=== PATIENT | male | born 1980 | race Caucasian/White ===

== ENCOUNTER 2023-08-07 15:30 | Emergency (ER) | payer SELFPAY ==
[2023-08-07] VITALS (24 sets, daily range): BP systolic 156–189; BP diastolic 92–110; PULSE 98–133; RESP 12–23; TEMP 36.6; O2SAT 93–99
--- NOTE | ~2023-08-07 | CT_ITS ---
EXAMINATION: CTA chest PE protocol DATE: 08/07/2023 16:44 INDICATION: 4 days of left-sided chest pain TECHNIQUE: Computed tomography (CT) pulmonary angiogram of the chest was performed with 100 mL Omnipa que-350 intravenous contrast. Additional 3D reconstructions utilizing coronal maximum intensity proje ction (MIP) were performed. Automated exposure control and iterative reconstruction technique were em ployed. The dose-length product was 528.11 mGy-cm. COMPARISON: None FINDINGS: Good contrast opacification of the pulmonary arteries. There is mild streak artifact from dense contr ast in the superior vena cava and right atrium. Mild scattered respiratory motion artifact most promi nent at the bilateral lung bases. Together this mildly decreases sensitivity in some of the smaller b asilar subsegmental pulmonary arteries. No definitive pulmonary embolism identified. There is an jessica omic variant partial anomalous pulmonary venous return of the pulmonary veins from the left upper lob e and lingula into the left brachiocephalic vein. Lungs are clear with no pneumonia, pulmonary edema, pulmonary infarct or pleural effusion. Heart size is normal. No pericardial effusion. Thoracic aorta is normal in caliber with no dissection. No pathologically enlarged thoracic lymphadenopathy. Mild b ilateral gynecomastia. Diffuse hepatic steatosis. Mild thoracic spondylosis. IMPRESSION: 1. No pulmonary embolism or other acute cardiopulmonary disease. 2. 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 The line 3. Diffuse hepatic steatosis. Reviewed, dictated and finalized at location A. EKEEPING/LAUNDRY IMPRESSION: 1. No pulmonary embolism or other acute cardiopulmonary disease. 2. 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 The line 3. Diffuse hepatic steatosis.
--- NOTE | 2023-08-07 15:49 | ECG_ITS ---
Measurements Intervals [place] Rate: 123 P: 73 AR: 153 QRS: 54 QRSD: 90 T: 54 QT: 308 QTc: 441 Interpretive Statements SINUS TACHYCARDIA OTHERWISE NORMAL ECG NO PREVIOUS ECG AVAILABLE FOR COMPARISON Electronically Signed On 08-09-2023 10:43:58 ART MODEL by Gavino Mccracken M.D.
[2023-08-07 16:02] LABS: Glucose Point of Care 120 mg/dl (65-105)
[2023-08-07 16:11] LABS: Basophils Absolute Auto 0.04 K/mm3 (0.00-0.10); Basophils Percent Auto 0.3 % (0.0-1.0); Eosinophils Absolute Auto 0.01 K/mm3 (0.02-0.50); Eosinophils Percent Auto 0.1 % (1.0-6.0); Hematocrit 44.9 % (40.0-54.0); Hemoglobin 15.5 g/dL (14.0-18.0); Immature Granulocyte Absolute 0.05 K/mm3 (0.00-0.00); Immature Granulocyte Percent A 0.4 % (0.0-0.0); Lymphocytes Absolute Auto 1.33 K/mm3 (1.10-4.50); Lymphocytes Percent Auto 10.1 % (18.0-42.0); Mean Corpuscular HGB Conc 34.5 g/dL (32.0-36.0); Mean Corpuscular Hemoglobin 30.6 pg (27.0-31.0); Mean Corpuscular Volume 88.7 fL (78.0-102.0); Mean Platelet Volume 9.4 fl (8.7-11.0); Monocytes Absolute Auto 0.65 K/mm3 (0.10-0.90); Monocytes Percent Auto 4.9 % (2.0-11.0); Neutrophils Absolute Auto 11.1 K/mm3 (1.7-7.2); Neutrophils Percent Auto 84.2 % (50.0-70.0); Platelet Count Result 291 K/mm3 (150-420); Red Blood Count 5.06 M/mm3 (4.70-6.10); Red Cell Distribution Width 12.3 % (11.6-14.4); White Blood Count 13.2 K/mm3 (4.8-10.8)
[2023-08-07] MEDS: SODIUM CHLORIDE 0.9% IV 1,000 ML 999 ML IV CONT ×2 (16:12→17:01)
[2023-08-07] MEDS: ASPIRIN 81 MG CHEWABLE TABLET 324 MG PO (16:14)
[2023-08-07] MEDS: NITROGLYCERIN OINTMENT 1 INCH DOSE TRANSDERM (16:14)
[2023-08-07 16:21] LABS: Hemoglobin A1C 6.1 % (<5.7)
[2023-08-07 16:22] LABS: Prothrombin Time 10.8 Seconds (9.50-12.10)
[2023-08-07 16:29] LABS: Alanine Aminotransferase 44 U/L (16-63); Albumin Level 4.3 g/dL (3.4-5.0); Alkaline Phosphatase 131 U/L (46-116); Anion Gap 10 mmol/L (8-16); Aspartate Amino Transferase 23 U/L (15-37); Bilirubin,Total 0.8 mg/dL (0.00-1.00); Blood Urea Nitrogen 15 mg/dL (7-18); Calcium 9.2 mg/dL (8.5-10.1); Carbon Dioxide 28 mmol/L (21-32); Chloride 98 mmol/L (98-108); Creatine Kinase 282 U/L (39-308); Estimated CRCL calculation 82 ml/min; Estimated Glomerular Filt Rate > 60; Glucose 134 mg/dL (70-99); Magnesium 1.3 mg/dL (1.8-2.4); Osmolality Calculated 284 mOsm/kg (285-295); Potassium 3.8 mmol/L (3.5-5.1); Sodium 136 mmol/L (136-145); Troponin I 4.7 ng/L (0.00-60.4)
[2023-08-07] MEDS: MAGNESIUM SULF 2 GM/WATER 50ML 2 GM/50 ML BAG IVPB (16:59)
--- NOTE | 2023-08-07 17:03 | PC.NURSE ---
PT IS LYING ON STRETCHER IN EXAM ROOM WITH IVF AND MEDICATIONS INFUSING ORDERED WITHOUT DIFFICULTY. NAD NOTED. PT IS AWAITING RESULTS AT THIS TIME. PT DENIES ANY NEEDS OR COMPLAINTS. WILL CONTINUE TO MONITOR.
--- NOTE | 2023-08-07 17:36 | ED.GENADULT ---
HPI - General Adult General Chief complaint: Chest Pain Stated complaint: chest pain; short of breath Time Seen by Provider: 08/07/23 15:42 History of Present Illness HPI narrative: 42yo man with moderately well controlled diabetes mellitus presents with two days constant chest pain, feels like a tight, squeezing ache across the chest. Somewhat modified by deep breaths and movement. No fevers, chills, cough, or congestion. No dyspnea or leg swelling. Has never had this before. Related Data Home Medications Medication Instructions Recorded Confirmed allopurinol 300 mg tablet 300 mg PO DAILY 08/07/23 08/07/23 glimepiride 2 mg tablet 2 mg PO DAILY 08/07/23 08/07/23 lisinopril 20 mg tablet 20 mg PO DAILY 08/07/23 08/07/23 lovastatin 10 mg tablet 10 mg PO DAILY 08/07/23 08/07/23 Allergies Allergy/AdvReac Type Severity Reaction Status Date / Time No Known Allergies Allergy Unknown Verified 08/07/23 15:50 Review of Systems Review of Systems: All systems reviewed & are unremarkable except as noted in HPI and below Constitutional: Constitutional: Denies chills and Denies fever(s) ENT: Denies dysphagia Cardiovascular: Cardiovascular: Reports chest pain Respiratory: Respiratory: Denies dyspnea Gastrointestinal: Gastrointestinal: Denies abdominal pain Exam Const: General: healthy appearing and no acute distress Nutritional Appearance: well nourished Eyes: Conjunctivae: conjunctivae normal Resp: Effort & Inspection: normal respiratory effort Auscultation: clear to auscultation bilaterally Cardio: Rate: regular rate Rhythm: regular rhythm Heart sounds: no murmurs GI: Inspection: non-distended GI Palp: Yes Soft to palpation and No Tenderness to palpation present (GI) Skin: General skin exam: normal color, no jaundice and no pallor Neuro: General: patient oriented x3 Extrem: General: no clubbing, cyanosis or edema Course Vital Signs Vital signs: Vital Signs Temperature 36.6 C 08/07/23 15:30 Pulse Rate 133 H 08/07/23 15:30 Respiratory Rate 18 08/07/23 15:30 Blood Pressure 189/107 H 08/07/23 15:30 Pulse Oximetry 96 08/07/23 15:30 Oxygen Delivery Room Air 08/07/23 15:30 Temperature 36.6 C 08/07/23 15:30 Pulse Rate 113 H 08/07/23 17:01 Respiratory Rate 16 08/07/23 17:01 Blood Pressure 175/98 H 08/07/23 17:01 Pulse Oximetry 95 08/07/23 17:01 Oxygen Delivery Room Air 08/07/23 15:32 Medical Decision Making MDM Narrative Medical decision making narrative: acute chest pain and pressure HEART score = [id number] = 2 DDx costochondritis, pleurisy, pneumothorax, venous thromboembolism. Incidentally found to be tachycardic. Screen for PE. Rehydrate. Check lytes. Vital Signs Vital Signs: Vital Signs Temperature 36.6 C 08/07/23 15:30 Pulse Rate 133 H 08/07/23 15:30 Respiratory Rate 18 08/07/23 15:30 Blood Pressure 189/107 H 08/07/23 15:30 Pulse Oximetry 96 08/07/23 15:30 Oxygen Delivery Room Air 08/07/23 15:30 Temperature 36.6 C 08/07/23 15:30 Pulse Rate 113 H 08/07/23 17:01 Respiratory Rate 16 08/07/23 17:01 Blood Pressure 175/98 H 08/07/23 17:01 Pulse Oximetry 95 08/07/23 17:01 Oxygen Delivery Room Air 08/07/23 15:32 Lab Data 08/07/23 16:07 08/07/23 16:07 Labs: Lab Results 08/07/23 08/07/23 Range/Units 15:58 16:07 WBC 13.2 H (4.8-10.8) K/mm3 RBC 5.06 (4.70-6.10) M/mm3 Hgb 15.5 (14.0-18.0) g/dL Hct 44.9 (40.0-54.0) % MCV 88.7 (78.0-102.0) fL MCH 30.6 (27.0-31.0) pg MCHC 34.5 (32.0-36.0) g/dL RDW 12.3 (11.6-14.4) % Plt Count 291 (150-420) K/mm3 MPV 9.4 (8.7-11.0) fl Immature Gran % (Auto) 0.4 H (0.0-0.0) % Neut % (Auto) 84.2 H (50.0-70.0) % Lymph % (Auto) 10.1 L (18.0-42.0) % [place] % (Auto) 4.9 (2.0-11.0) % Eos % (Auto) 0.1 L (1.0-6.0) % Baso % (Auto) 0.3 (0.0-1.0) % Lymph # (Auto) 1.33 (1.
--- NOTE | 2023-08-07 18:01 | PC.NURSE ---
PT IS LYING ON STRETCHER WITH FAMILY AT BEDSIDE. PT REPORTS NO CHANGE IN SX POST TX. ERP IS NOTIFIED. PT DENIES ANY NEEDS OR COMPLAINTS. WILL CONTINUE TO MONITOR.
--- NOTE | 2023-08-07 18:22 | PC.NURSE ---
ERP IS AWARE OF BP 181/100, REPORTS HE SPOKE WITH PT ABOUT BP AND PT HAS APPOINTMENT TOMORROW WITH PMD. PT TO BE DC HOME. NITRO PASTE WAS REMOVED.
== END 2023-08-07 18:15 | disposition home or self-care (01) ==
PROVIDERS: Emergency Provider Emergency Medicine; PCP Internal Medicine
DX: R07.9 Chest pain, unspecified (principal); E11.9 Type 2 diabetes mellitus without complications; Z79.899 Other long term (current) drug therapy
CPT/HCPCS: 36415; 71275; 80053; 82550; 82948; 83036; 83605; 83735; 84484; 85025; 85610; 93005; 96361; 96365; 99284; A9270; J3475; J7030; Q9967

== ENCOUNTER 2023-08-14 08:21 | Outpatient (CLI) | payer SELFPAY ==
--- NOTE | 2023-08-14 08:32 | EST_ITS ---
Patient Info Name: Xavi Herrera Age: 42 years : 1980 Gender: Male Ht: 70 in Wt: 220 lbs BSA: 2.25 m2 HR: 109 bpm BP: 153 / 103 mmHg Heart Rhythm: Tachycardia Technical Quality: Good Exam Date: 08/14/2023 9:24 AM Exam Location: Echo Lab Patient Status: Outpatient Admit Date: 08/14/2023 Staff Ordering Physician: Abdirizak Dave MD Attending Provider: Abdirizak Dave MD Exercise Technologist: Julia Ospina, RESPIRATORY SUPERVISOR Nurse: Naomie Fuller RN Exercise Physician: Arianna Echeverria CEP Exam Type: CA stress test treadmill Study Info Indications SOB - ABNEKG - An exercise stress test was performed. History/Risk Factors Hypertension: Yes Diabetes Mellitus: Yes History/Risk Factors Diabetes, HTN. Summary 1. 1. Negative Maninder exercise stress test for ischemic ST changes by ECG criteria. 2. 2. Reduced functional capacity, achieving 7.7 METs of workload. 3. 3. Baseline hypertension. 4. 4. Appropriate HR response to exercise. 5. 5. Appropriate HR recovery at 1 minute post exercise. 6. 6. No imaging with stress testing. Protocol: Maninder Stress ECG Details Stage: REST Duration (min): 1 min : 22 sec Speed (mph): 0.0 Grade (%): 0 HR (bpm): 111 SBP (mmHg): 153 DBP (mmHg): 103 METS: --- Stage: REST Duration (min): 2 min : 18 sec Speed (mph): 0.0 Grade (%): 0 HR (bpm): 111 SBP (mmHg): 153 DBP (mmHg): 103 METS: --- Stage: STAGE 1 Duration (min): 1 min : 0 sec Speed (mph): 1.7 Grade (%): 10 HR (bpm): 128 SBP (mmHg): 153 DBP (mmHg): 103 METS: --- Stage: STAGE 1 Duration (min): 2 min : 0 sec Speed (mph): 1.7 Grade (%): 10 HR (bpm): 137 SBP (mmHg): 153 DBP (mmHg): 103 METS: --- Stage: STAGE 1 Duration (min): 3 min : 0 sec Speed (mph): 1.7 Grade (%): 10 HR (bpm): 134 SBP (mmHg): 178 DBP (mmHg): 91 METS: --- Stage: STAGE 2 Duration (min): 1 min : 0 sec Speed (mph): 2.5 Grade (%): 12 HR (bpm): 146 SBP (mmHg): 178 DBP (mmHg): 91 METS: --- Stage: STAGE 2 Duration (min): 2 min : 0 sec Speed (mph): 2.5 Grade (%): 12 HR (bpm): 152 SBP (mmHg): 178 DBP (mmHg): 91 METS: --- Stage: STAGE 2 Duration (min): 3 min : 0 sec Speed (mph): 2.5 Grade (%): 12 HR (bpm): 157 SBP (mmHg): 186 DBP (mmHg): 88 METS: --- Stage: STAGE 3 Duration (min): 0 min : 22 sec Speed (mph): 3.4 Grade (%): 14 HR (bpm): 164 SBP (mmHg): 186 DBP (mmHg): 88 METS: --- Stage: RECOVERY Duration (min): 0 min : 37 sec Speed (mph): 0.0 Grade (%): 0 HR (bpm): 155 SBP (mmHg): 186 DBP (mmHg): 88 METS: --- Stage: RECOVERY Duration (min): 1 min : 37 sec Speed (mph): 0.0 Grade (%): 0 HR (bpm): 130 SBP (mmHg): 186 DBP (mmHg): 88 METS: --- Stage: RECOVERY Duration (min): 2 min : 37 sec Speed (mph): 0.0 Grade (%): 0 HR (bpm): 126 SBP (mmHg): 204 DBP (mmHg): 98 METS: ---
== END 2023-08-14 08:22 | disposition home or self-care (01) ==
PROVIDERS: PCP Internal Medicine; Visit Provider Internal Medicine
DX: R94.31 Abnormal electrocardiogram [ECG] [EKG] (principal); R07.9 Chest pain, unspecified; R06.02 Shortness of breath
CPT/HCPCS: 93017

== ENCOUNTER 2024-06-28 08:14 | Outpatient (CLI) | payer SELFPAY ==
[2024-06-28 08:39] LABS: Basophils Absolute Auto 0.03 K/mm3 (0.00-0.10); Basophils Percent Auto 0.4 % (0.0-1.0); Eosinophils Absolute Auto 0.11 K/mm3 (0.02-0.50); Eosinophils Percent Auto 1.4 % (1.0-6.0); Hematocrit 40.7 % (40.0-54.0); Hemoglobin 14.3 g/dL (14.0-18.0); Immature Granulocyte Absolute 0.02 K/mm3 (0.00-0.00); Immature Granulocyte Percent A 0.3 % (0.0-0.0); Lymphocytes Percent Auto 24.5 % (18.0-42.0); Mean Corpuscular HGB Conc 35.1 g/dL (32-36); Mean Corpuscular Hemoglobin 31.4 pg (27.0-31.0); Mean Corpuscular Volume 89.5 fL (78.0-102.0); Mean Platelet Volume 9.3 fl (8.7-11.0); Monocytes Absolute Auto 0.48 K/mm3 (0.10-0.90); Monocytes Percent Auto 6.2 % (2.0-11.0); Neutrophils Absolute Auto 5.21 K/mm3 (1.70-7.20); Neutrophils Percent Auto 67.2 % (50.0-70.0); Platelet Count Result 230 K/mm3 (150-420); Red Blood Count 4.55 M/mm3 (4.70-6.10); Red Cell Distribution Width 12.2 % (11.6-14.4); White Blood Count 7.8 K/mm3 (4.8-10.8)
[2024-06-28 08:42] LABS: Add Urine Microscopic? NO; Appearance Urine Clear (Clear); Bilirubin Urine Negative (Negative); Blood Urine Negative (Negative); Color Urine Light Yellow (Yellow); Glucose Urine UA Negative (Negative); Ketones Urine Negative (Negative); Leukocyte Esterase Ur Negative LEU/UL (Negative); Nitrate Urine Negative (Negative); Protein Urine Negative (Negative); Specific Grav Ur 1.025 (1.010-1.020); Urobilinogen Urine 0.2 mg/dL (0.2-1.0); pH Urine 5.5 (5.0-8.0)
[2024-06-28 08:51] LABS: Hemoglobin A1C 6.1 % (<5.7)
[2024-06-28 09:31] LABS: Alanine Aminotransferase 50 U/L (16-63); Alkaline Phosphatase 120 U/L (46-116); Anion Gap 10 mmol/L (4-12); Aspartate Amino Transferase 26 U/L (15-37); Bilirubin,Total 0.7 mg/dL (0.00-1.00); Blood Urea Nitrogen 19 mg/dL (7-18); Calcium 9.4 mg/dL (8.5-10.1); Carbon Dioxide 28 mmol/L (21-32); Chloride 102 mmol/L (98-108); Cholesterol 213 mg/dL (0-200); Creatine Kinase 187 U/L (39-308); Estimated Glomerular Filt Rate > 60; Glucose 115 mg/dL (70-99); HDL Direct 56 mg/dL (40-60); LDL Cholesterol Calculated 121 mg/dL (<130); Osmolality Calculated 293 mOsm/kg (285-295); Potassium 4.5 mmol/L (3.5-5.1); Sodium 140 mmol/L (136-145); Total Protein 7.4 g/dL (6.4-8.2); Triglycerides 182 mg/dL (0-150); Uric Acid 5.9 mg/dL (3.5-7.2)
== END 2024-06-28 08:15 | disposition home or self-care (01) ==
LOC: CHSLAB 08:17
PROVIDERS: PCP Internal Medicine; Visit Provider Internal Medicine
DX: E79.0 Hyperuricemia without signs of inflammatory arthritis and tophaceous disease (principal); I10 Essential (primary) hypertension; E11.65 Type 2 diabetes mellitus with hyperglycemia; N39.0 Urinary tract infection, site not specified
CPT/HCPCS: 36415; 80053; 80061; 81003; 82550; 83036; 84550; 85025